=== PATIENT | female | born 1975 | race Two or more races ===

== ENCOUNTER 2016-07-08 09:55 | Emergency (ER) | payer MEDICAID ==
[~2016-07-08] VITALS: Ht 149.9 cm; Wt 74.8 kg
[2016-07-08 10:07] VITALS: BP 129/82
[2016-07-08] MEDS ORDERED: KETOROLAC TROMETH 60MG/2ML VIAL IM ONE (12:00)
== END 2016-07-08 12:14 | disposition home or self-care (01) ==
LOC: ER 09:55
DX: S29.012A Strain of muscle and tendon of back wall of thorax, initial encounter (principal); W18.39XA Other fall on same level, initial encounter; Y93.11 Activity, swimming; Y99.8 Other external cause status; Y92.34 Swimming pool (public) as the place of occurrence of the external cause
CPT/HCPCS: 81002; 96372; 99283; J1885